=== PATIENT | female | born 1990 | race Caucasian/White ===

== ENCOUNTER 2018-08-19 13:43 | Emergency (ER) | payer BC ==
[~2018-08-19] VITALS: Ht 162.6 cm; Wt 51.3 kg
--- NOTE | 2018-08-19 14:11 | NUR ---
PT C/O PALPITATIONS SINCE LAST NIGHT, POSS ANXIETY ATTACK PER PT. AAOX4, DENIES CP, SOB, DIZZINESS, N/V/D, UPPER BACK PAIN @ THIS TIME. 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 AWAITING EVAL BY OMARI/SARA. WILL CONT TO MONITOR.
[2018-08-19 14:30] LABS: BASOPHILS % (AUTO) 0.5 % (0.0-2.0); EOSINOPHILS % (AUTO) 0.1 % (0.0-6.0); HEMATOCRIT 45 % (33-45); LYMPHOCYTES # (AUTO) 1.1 /CMM (0.8-4.8); LYMPHOCYTES % (AUTO) 13.8 % (20.0-44.0); MEAN CORPUSCULAR HGB CONC 34 g/dl (31.0-36.0); MEAN CORPUSCULAR VOLUME 91 fL (82-100); MONOCYTES # (AUTO) 0.4 /CMM (0.1-1.30); MONOCYTES % (AUTO) 5.2 % (2.0-12.0); NEUTROPHILS # (AUTO) 6.2 /CMM (1.8-8.9); NEUTROPHILS % (AUTO) 80.4 % (43.0-81.0); PLATELET COUNT (AUTO) 218 /CMM (150-450); RED BLOOD CELL COUNT(AUTO) 4.88 MIL/uL (4.0-5.2); WHITE BLOOD COUNT (AUTO) 7.7 K/uL (4.3-11.0)
[2018-08-19] MEDS ORDERED: IV NS 0.9% 1,000 ML BAG IV ONE (14:30)
[2018-08-19 14:43] LABS: ALBUMIN 4.8 g/dL (3.4-5.0); BILIRUBIN,TOTAL 0.2 mg/dL (0.2-1.0); CALCIUM, SERUM 9.7 mg/dL (8.5-10.1); CREATININE 0.7 mg/dL (0.6-1.3); POTASSIUM 3.4 mmol/L (3.5-5.1); TOTAL PROTEIN, SERUM 8.8 g/dL (6.4-8.2)
[2018-08-19 15:06] LABS: THYROID STIMULATING HORMONE 1.898 uIU/mL (0.358-3.74)
[2018-08-19 15:13] LABS: APPEARANCE,URINE Clear (CLEAR); BILIRUBIN,URINE Negative (NEGATIVE); BLOOD, URINE Trace-lysed Ery/uL (NEGATIVE); COLOR,URINE Light yellow (YELLOW); KETONES,URINE Negative (NEGATIVE); LEUKOCYTE ESTERASE ,URINE Negative (NEGATIVE); NITRITE, URINE Negative (NEGATIVE); PH,URINE 6.5 (5.0-8.0); PROTEIN,URINE Negative (NEGATIVE); UGLUCOSE Negative (NEGATIVE); UROBILINOGEN,URINE 0.2 EU/dL (0.2)
[2018-08-19 15:16] LABS: D-DIMER 0.43 mg/L(FEU (0.17-0.50)
[2018-08-19] MEDS ORDERED: LORAZEPAM INJ 2 MG/ML VIAL IV ONE (15:30)
[2018-08-19 15:50] LABS: WBC,URINE 0-2 /HPF (0-3)
[2018-08-19 15:51] LABS: BACTERIA,URINE Few /HPF (None Seen); SQUAMOUS EPITHELIAL CELL,UR Few /HPF (None Seen)
--- NOTE | 2018-08-19 16:00 | NUR ---
PT SEEN & EVAL'D BY DEEPAK POLLACK.
--- NOTE | 2018-08-19 16:10 | NUR ---
Social service consult requested by Dr. Kwok for anxiety , stressors including trouble with bills. Pt. is a 28 year old female who came to [facility] ED with her boyfriend Jimy for having heart palpitations. DEEPAK met with pt. bedside. Pt's boyfriend Jimy was bedside. SW requested for privacy with the pt. and Jimy left the room. 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 Pt. states she is originally from [place] and moved her a few years back but doesn't feel she has adjusted as of yet to [facility]. Pt's family is in [place]. Her brother and his family reside in [facility] [place] [facility] and he is doing his residency at [employer]. Pt. states she has been having anxiety since age 14 and has not been on any medication for it. Pt. states she is willing to take anxiety medication at this time. SW also encouraged pt. to attend therapy and informed her it might help her with her anxiety by speaking to a therapist on a regular basis. DEEPAK gave pt. the following mental health counseling resources: [facility] (Behavioral Health) [facility] Walk-in during certain hours [place], [place] [id number] Operation Hours: MON - FRI 8:00 a.m. - 5:00 p.m. Walk In Hours: MON - FRI 8:00 a.m. - 5:00 p.m. Services by Age: Adults and Older Adults [facility] Appointment needed [address] [facility] [id number] Counseling [facility] [address] [phone] [facility] [id number] DEEPAK upated pt's RN in regards to pt. willing to take medication for her anxiety. He informed DEEPAK he will notify Dr. Kwok. No other social service needs are requested at this time. SW is available, if needed.
[2018-08-19] MEDS ORDERED: LORAZEPAM INJ 2 MG/ML VIAL ONE (16:38)
--- NOTE | 2018-08-19 16:49 | NUR ---
PT GETTING ANXIOUS AGAIN. MEDICATED PER ERMD ORDER, PT SHAUNA WELL.
--- NOTE | 2018-08-19 18:42 | NUR ---
Patient discharged to home in stable condition. Written and verbal after care instructions given. Patient verbalizes understanding of instruction.IV removed. Catheter intact and site benign. Pressure and 4x4 applied to site. No bleeding noted.
[2018-08-19 18:48] VITALS: BP 123/70
== END 2018-08-19 18:49 | disposition home or self-care (01) ==
LOC: ER 13:51
DX: F43.9 Reaction to severe stress, unspecified (principal); R00.2 Palpitations; F41.9 Anxiety disorder, unspecified; M41.9 Scoliosis, unspecified
CPT/HCPCS: 36415; 71046; 80053; 81001; 84443; 84702; 84703; 85025; 85378; 85730; 96374; 99284; A4606; J2060; J7030; 81000-TC

== ENCOUNTER 2019-03-19 09:49 | Emergency (ER) | payer BC, OTHER ==
[~2019-03-19] VITALS: Ht 162.6 cm; Wt 49.9 kg
--- NOTE | 2019-03-19 10:50 | NUR ---
"Chronic Headaches started 3wks ago went to yesterday was given meds Got prescription for naproxyn NOT helping" PATIENT A/OX4, BREATHING EVEN AND UNLABORED, NO DISTRESS NOTED, NEEDS ATTENDED. KEPT COMFORTABLE. C/O HEADACHE AT THIS TIME.
[2019-03-19] MEDS ORDERED: ACETAMINOPHEN ES 500 MG TABLET PO ONE (12:00)
[2019-03-19] MEDS ORDERED: ACETAMINOPHEN ES 500 MG TABLET ONE (12:07)
[2019-03-19 13:46] VITALS: BP 128/79
== END 2019-03-19 13:46 | disposition home or self-care (01) ==
LOC: ER 09:52
DX: G44.209 Tension-type headache, unspecified, not intractable (principal); F43.9 Reaction to severe stress, unspecified
CPT/HCPCS: 70450-TC; 84703-TC